=== PATIENT | female | born 1970 | race Caucasian/White ===

== ENCOUNTER 2019-03-03 01:21 | Emergency (ER) | payer OTHER ==
[~2019-03-03] VITALS: Ht 162.6 cm; Wt 82.3 kg
[2019-03-03 01:30] VITALS: BP 169/92; PULSE 70; RESP 20; Ht 162.6 cm; Wt 82.3 kg
[2019-03-03] MEDS ORDERED: LACTATED RINGER'S 1,000 ML IV STA (02:02)
[2019-03-03] MEDS ORDERED: ONDANSETRON 4 MG INJ IV STA (02:02)
--- NOTE | 2019-03-03 02:48 | ERD ---
ER Documentation Chief Complaint Chief Complaint shaky w/N&V & nape pains since Tuesday HPI This is a 48-year-old female with a history of hypertension who presents to the emergency room for evaluation of weakness, nausea, diarrhea, and one episode of "being shaky" for approximately 10 seconds. The patient denies any headache, chest pain, shortness of breath or vomiting currently. She denies any aggravating or relieving factors for her symptoms and came to the ER today for evaluation ROS All systems reviewed and are negative except as per history of present illness. Medications Home Meds Active Scripts Hydrocodone/Acetaminophen ([place] 5-325 Tablet) 1 Each Tablet, 1 TAB PO Q6H PRN for PAIN, #7 TAB Prov:SRIDEVI ÁLVAREZ MD 10/23/16 Ibuprofen* (Motrin*) 600 Mg Tab, 600 MG PO Q6H PRN for PAIN AND OR ELEVATED TEMP, #20 TAB Prov:SRIDEVI ÁLVAREZ MD 10/23/16 Allergies Allergies: Coded Allergies: No Known Allergy (Unverified , 10/22/16) PMhx/Soc History of Surgery: Yes (CARDIAC SX) Anesthesia Reaction: No Hx Neurological Disorder: No Hx Respiratory Disorders: No Hx Cardiac Disorders: Yes (HTN) Hx Psychiatric Problems: No Hx Miscellaneous Medical Probl: Yes (PRE-DIABETES) Hx Alcohol Use: No Hx Substance Use: No Hx Tobacco Use: No Smoking Status: Never smoker Physical Exam Vitals Vital Signs Date Temp Pulse Resp B/P (MAP) Pulse Ox O2 O2 Flow FiO2 Time Delivery Rate 03/03/19 97.8 70 20 169/92 98 01:30 (117) Physical Exam Const: No acute distress Head: Atraumatic Eyes: Normal Conjunctiva ENT: Normal External Ears, Nose and Mouth. Neck: Full range of motion. No meningismus. Resp: Clear to auscultation bilaterally Cardio: Regular rate and rhythm, no murmurs Abd: Soft, non tender, non distended. Normal bowel sounds Skin: No petechiae or rashes Back: No midline or flank tenderness Ext: No cyanosis, or edema Neur: Awake and alert Psych: Normal Mood and Affect Result Diagram: 03/03/19 0206 03/03/19 0206 Results 24 hrs Laboratory Tests Test 03/03/19 02:06 03/03/19 02:15 White Blood Count 7.4 10^3/ul Red Blood Count 4.62 10^6/ul Hemoglobin 13.3 g/dl Hematocrit 38.9 % Mean Corpuscular Volume 84.2 fl Mean Corpuscular Hemoglobin 28.8 pg Mean Corpuscular Hemoglobin Concent 34.2 g/dl Red Cell Distribution Width 13.0 % Platelet Count 198 10^3/UL Mean Platelet Volume 9.9 fl Immature Granulocytes % 0.500 % Neutrophils % 56.4 % Lymphocytes % 29.2 % Monocytes % 10.5 % Eosinophils % 2.6 % Basophils % 0.8 % Nucleated Red Blood Cells % 0.0 /100WBC Immature Granulocytes # 0.040 10^3/ul Neutrophils # 4.2 10^3/ul Lymphocytes # 2.2 10^3/ul Monocytes # 0.8 10^3/ul Eosinophils # 0.2 10^3/ul Basophils # 0.1 10^3/ul Nucleated Red Blood Cells # 0.0 10^3/ul Sodium Level 141 mmol/L Potassium Level 4.2 mmol/L Chloride Level 101 mmol/L Carbon Dioxide Level 32 mmol/L Anion Gap 8 Blood Urea Nitrogen 12 mg/dl Creatinine 0.85 mg/dl Est Glomerular Filtrat Rate mL/min > 60 mL/min Glucose Level 143 mg/dl Calcium Level 10.1 mg/dl Total Bilirubin 0.6 mg/dl Direct Bilirubin 0.00 mg/dl Indirect Bilirubin 0.6 mg/dl Aspartate Amino Transf (AST/SGOT) 74 IU/L Alanine Aminotransferase (ALT/SGPT) 110 IU/L Alkaline Phosphatase 95 IU/L Troponin I < 0.012 ng/ml Total Protein 7.3 g/dl Albumin 4.3 g/dl Globulin 3.00 g/dl Albumin/Globulin Ratio 1.43 Lipase 166 U/L Urine Color STRAW Urine Clarity CLEAR Urine pH 7.0 Urine Specific Occidental 1.003 Urine Ketones NEGATIVE mg/dL Urine Nitrite NEGATIVE mg/dL Urine Bilirubin NEGATIVE mg/dL Urine Urobilinogen NEGATIVE mg/dL Urine Leukocyte Esterase NEGATIVE Matt/ul Urine Microscopic RBC 1 /HPF Urine Microscopic WBC 2 /HPF Urine Squamous Epithelial Cells FEW /HPF Urine Bacteria FEW /HPF Urine Hemoglobin 1+ mg/dL Urine Glucose NEGATIVE mg/dL Urine Total Protein NEGATIVE mg/dl Current Medications Medications Dose Sig/Crystal Start Time Status Last (Trade) Ordered Route PRN Stop Time Admin Dose Reason Admin Lactated 1,000 ml @ Q1H STAT 03/03/19 03/03/19 Ringer's 1,000 mls/hr IV 02:02 02:17 03/03/19 03:01 Ondansetron 4 mg ONCE STAT 03/03/19 DC 03/03/19 HCl (Zofran IV 02:02 02:17 Inj) 03/03/19 02:03 Procedures/MDM EKG: Rate/Rhythm: [Normal Sinus Rhythm] QRS, ST, T-waves: [No changes consistent w/ acute ischemia] Impression: [No evidence of ischemia or arrhythmia] Chest X-ray 1V Interpreted by me: Soft Tissue: No acute abnormalities Bones: No acute abnormalities Mediastinum/Cardiac Silhouette/Lungs: [No acute abnormalities] This 48-year-old female presents to the emergency room for evaluation of multiple complaints including diarrhea, weakness, shakiness. On my exam the patient was afebrile, nontoxic-appearing and hemodynamically stable. The patient did not appear to be in any distress. Her EKG is nonischemic, chest x- ray was clear. Lab work was obtained and the patient was given 1 L of IV fluids. Her lab work does not demonstrate any electrolyte abnormalities, urinalysis is clear. On reevaluation the patient is feeling better. I am unsure if there is a component of anxiety or dehydration to her symptoms however the patient is stable for outpatient follow-up at this time with her primary care physician Departure Diagnosis: Primary Impression: Multiple complaints Additional Impressions: Generalized weakness Diarrhea Condition: FLORIAN Hudson DO Mar 03, 2019 02:48
== END 2019-03-03 03:13 | disposition home or self-care (01) ==
LOC: E/R 01:21 → MERGE 01:21 → E/R 03:13
DX: M54.2 Cervicalgia (principal); I10 Essential (primary) hypertension; R53.1 Weakness; R19.7 Diarrhea, unspecified; R11.0 Nausea; R25.1 Tremor, unspecified; Z98.61 Coronary angioplasty status
CPT/HCPCS: 36415; 71045; 80053; 81001; 83690; 84484; 85025; 93005; 96374; 99285; J2405; J7120

== ENCOUNTER 2019-03-05 09:26 | Emergency (ER) | payer OTHER ==
[~2019-03-05] VITALS: Ht 160 cm; Wt 83.0 kg
[2019-03-05 09:31] VITALS: Ht 160 cm; Wt 83.0 kg
[2019-03-05] MEDS ORDERED: ATOR10TA65 PO (10:05)
[2019-03-05] MEDS ORDERED: METO-335 PO (10:05)
[2019-03-05] MEDS ORDERED: ONDA4TAB8 PO (10:05)
[2019-03-05] MEDS ORDERED: PROCHLORPERAZINE 10 MG INJ IV STA (10:12)
[2019-03-05] MEDS ORDERED: SOD CHLORIDE 0.9% 1,000 ML IV STA (10:12)
[2019-03-05] MEDS ORDERED: DIPHENHYDRAMINE 50 MG INJ IV STA (10:12)
[2019-03-05] MEDS ORDERED: BUTA1CAP38 PO (11:25)
[2019-03-05] MEDS ORDERED: IBUP800T48 PO (11:25)
[2019-03-05 11:32] VITALS: BP 118/71; PULSE 69; RESP 18
--- NOTE | 2019-03-05 11:39 | ERD ---
ER Documentation Chief Complaint Chief Complaint chest pressure x 3 days and headache x 1 week HPI This is a 48-year-old female presents with a multitude of different complaints. The patient was here on the of this month, 2 days ago for similar nonspecific symptoms including chest pain and headache. Patient returns with persistent symptoms. The patient was noted to have elevated blood pressure at that time. The patient used a different name during her visit. Medical record is [id number] Today the patient is describing left-sided gradual onset throbbing headache with associated phono and photophobia. She does have a history of headaches. This feels a little bit more severe than headaches in the past but is not sudden onset and not the worst headache of her life. Patient also describes an "air" sensation from her stomach going up into her chest and into her head. She denies any pressure of the chest no exertional symptoms no shortness of breath, no pleuritic pain. Translation services were utilized during this patient's encounter Language: Israeli Source: Video ROS All systems reviewed and are negative except as per history of present illness. Medications Home Meds Active Scripts Ibuprofen* (Motrin*) 800 Mg Tab, 800 MG PO Q6H PRN for PAIN AND OR ELEVATED TEMP, #30 TAB Prov:DWAYNE BAKER MD 03/05/19 Yzuzgkfuue-Jytvjeqttlbcb-Vdswdizj* (Fioricet*) 50-300-40 Mg Capsule, 1 CAP PO Q4H PRN for HEADACHE, #30 CAP Prov:DWAYNE BAKER MD 03/05/19 Reported Medications Ondansetron Hcl* (Zofran*) 4 Mg Tablet, 4 MG PO Q6H PRN for NAUSEA AND OR VOMITING, TAB 03/05/19 Atorvastatin Calcium (Atorvastatin Calcium) 10 Mg Tablet, 10 MG PO QHS, #30 TAB 03/05/19 Metoprolol Succinate* (Toprol XL*) 25 Mg Tab.sr.24h, 25 MG PO DAILY, #30 TAB 03/05/19 Allergies Allergies: Coded Allergies: No Known Allergy (Unverified , 03/05/19) PMhx/Soc History of Surgery: Yes (, CHOLECYSTECTOMY) Anesthesia Reaction: No Hx Neurological Disorder: No Hx Respiratory Disorders: No Hx Cardiac Disorders: Yes (HTN, HLD) Hx Psychiatric Problems: No Hx Miscellaneous Medical Probl: No Hx Alcohol Use: No Hx Substance Use: No Hx Tobacco Use: No Smoking Status: Never smoker FmHx Family History: No diabetes, No coronary disease Physical Exam Vitals Vital Signs Date Temp Pulse Resp B/P (MAP) Pulse Ox O2 O2 Flow FiO2 Time Delivery Rate 03/05/19 87 18 129/77 100 Room Air 10:59 (94) 03/05/19 98.0 60 18 135/86 100 Room Air 10:09 (102) 03/05/19 97.5 67 18 153/85 98 09:31 (107) Physical Exam General: Well developed, well nourished, no acute distress Head: Normocephalic, atraumatic. Eyes: Pupils equally reactive, EOM intact ENT: Moist mucous membranes Neck: Supple, no lymphadenopathy Respiratory: Lungs clear bilaterally, no distress Cardiovascular: RRR, no murmurs, rubs, or gallops Abdominal: Soft, non-tender, non-distended, no peritoneal signs : Deferred MSK: No edema, no unilateral swelling, 5/5 strength Neurologic: Alert and oriented, moving all extremities, normal speech, no focal weakness, no cerebellar signs, no meningismus Skin: No rash Psych: Normal mood Result Diagram: 03/05/19 1000 03/05/19 1000 Results 24 hrs Laboratory Tests Test 03/05/19 10:00 03/05/19 10:50 White Blood Count 6.3 10^3/ul Red Blood Count 4.36 10^6/ul Hemoglobin 12.3 g/dl Hematocrit 36.9 % Mean Corpuscular Volume 84.6 fl Mean Corpuscular Hemoglobin 28.2 pg Mean Corpuscular Hemoglobin Concent 33.3 g/dl Red Cell Distribution Width 13.2 % Platelet Count 191 10^3/UL Mean Platelet Volume 10.2 fl Immature Granulocytes % 0.300 % Neutrophils % 55.6 % Lymphocytes % 30.6 % Monocytes % 10.5 % Eosinophils % 2.4 % Basophils % 0.6 % Nucleated Red Blood Cells % 0.0 /100WBC Immature Granulocytes # 0.020 10^3/ul Neutrophils # 3.5 10^3/ul Lymphocytes # 1.9 10^3/ul Monocytes # 0.7 10^3/ul Eosinophils # 0.2 10^3/ul Basophils # 0.0 10^3/ul Nucleated Red Blood Cells # 0.0 10^3/ul Prothrombin Time 12.9 Sec Prothrombin Time Ratio 1.0 INR International Normalized Ratio 0.96 Activated Partial Thromboplast Time 28.6 Sec Sodium Level 138 mmol/L Potassium Level 3.8 mmol/L Chloride Level 104 mmol/L Carbon Dioxide Level 28 mmol/L Anion Gap 6 Blood Urea Nitrogen 9 mg/dl Creatinine 0.58 mg/dl Est Glomerular Filtrat Rate mL/min > 60 mL/min Glucose Level 130 mg/dl Calcium Level 9.0 mg/dl Troponin I < 0.012 ng/ml POC Beta HCG, Qualitative NEGATIVE Current Medications Medications Dose Sig/Crystal Start Time Status Last (Trade) Ordered Route PRN Stop Time Admin Dose Reason Admin Sodium 1,000 ml @ Q1H STAT 03/05/19 DC 03/05/19 Chloride 1,000 mls/hr IV 10:12 10:50 03/05/19 11:11 10 mg ONCE STAT 03/05/19 DC 03/05/19 Prochlorperaz IV 10:12 10:50 ine 03/05/19 10:14 (Compazine Inj) 25 mg ONCE STAT 03/05/19 DC 03/05/19 Diphenhydrami IV 10:12 10:51 ne HCl 03/05/19 10:14 (Benadryl) Procedures/MDM EKG, MONITORS, & DIAGNOSTIC IMAGING: CT brain: No acute process per radiologist read Chest x-ray: I reviewed and interpreted a 1 view of the chest Mediastinum: No enlargement Cardiac silhouette: No cardiomegaly Airspace: Clear lung martinez bilaterally without evidence of pneumothorax Bones: No evidence of fracture LAB INTERPRETATION: I reviewed the laboratory testing and it shows no evidence of acute process MEDICAL DECISION MAKING: The patient presents with multiple complaints. The patient's chest discomfort is very nonspecific and described as a "air " sensation. I do not believe the patient's presentation is consistent with acute coronary syndrome. A repeat EKG and troponin will be sent though the patient had a normal EKG and troponin II days ago. Patient also had a chest x-ray at that time. No repeat imaging is necessary. The patient meets the PERC RULE out criteria. Thus, less than 2% risk of pulmonary embolism with better alternative diagnosis. No indication for d-dimer or CT pulmonary angiogram at this time. The patient's headache is unlikely related to serious etiology. The patient does not exhibit any clinical signs or symptoms, and has no risk factors to suggest headache etiology such as subarachnoid hemorrhage, acute vertebral or carotid dissection, intracranial mass, epidural, subdural hematoma, dural venous sinus thrombosis, giant cell arteritis, or pseudotumor cerebri. The headache is unilateral and gradual in onset likely consistent with migraine headache. Given the patient's elevated blood pressure 2 days ago and no central nervous system imaging in our records a CT of the brain to rule out mass would be appropriate. ER COURSE: * Patient given IV fluids, Compazine and Benadryl with dramatic improvement of her headache. Laboratory testing and diagnostic imaging is otherwise unrevealing. * At this point I feel the patient can be safely discharged with close primary care follow-up. CONSULTATION: None DISPOSITION PLAN: The patient does not have an identifiable emergent medical condition that warrants inpatient hospitalization at this time. The patient is deemed safe for discharge with outpatient follow-up. We discussed follow up with the patient's primary care doctor within 24 to 48 hours as needed. We also discussed return to the emergency room for worsening symptoms or worsening condition. Outpatient referral: None required Discharge Medications: Fioricet Departure Diagnosis: Primary Impression: Migraine headache Migraine type: unspecified Status migrainosus presence: without status migrainosus Intractability: not intractable Qualified Codes: G43.909 - Migraine, unspecified, not intractable, without status migrainosus Condition: Stable Patient Instructions: Headache, Unspecified Ref[facility]: [facility] Usted se shrestha hecho un examen mdico de control que le indica que no est en freida condicin que requiera tratamiento urgente en el Departamento de Emergencia. Un estudio ms profundo y el tratamiento de delvalle condicin pueden esperar sin ningn riesgo hasta que usted sea atendida/o en el consultorio de delvalle mdico o freida clnica. Es responsabilidad suya arreglar freida sirena para el seguimiento del olivia. MANEJO DE CONDICIONES NO URGENTES EN EL FUTURO 1) Si usted tiene un mdico de atencin primaria: Usted debera llamar a delvalle mdico de atencin primaria antes de venir al departamento de emergencia. Despus de las horas de consultorio, delvalle doctor o delvalle asociado/a est disponible por telfono. El mdico o enfermero de sheldon en el servicio telefnico puede asesorarle por hina medio para atender el problema, o olivia contrario se puede programar freida sirena. 2) Si usted no tiene un mdico de atencin primaria: Llame al mdico o clnica de referencia que aparece abajo shantal las horas de c onsultorio para hacer freida sirena para que le vean. CLINICAS: [facility] [phone] [facility] [phone] [facility] [[email or web address] [phone] [address] [facility]. [place] [id number] [phone] [facility]. [place] [id number] [phone] [facility]. [phone] [address] [facility]. [facility] () Usted se shrestha hecho un examen mdico de control que le indica que no est en freida condicin que requiera tratamiento urgente en el Departamento de Emergencia. Un estudio ms profundo y el tratamiento de delvalle condicin pueden esperar sin ningn riesgo hasta que usted sea atendida/o en el consultorio de delvalle mdico o freida clnica. Es responsabilidad suya arreglar freida sirena para el seguimiento del olivia. MANEJO DE CONDICIONES NO URGENTES EN EL FUTURO 1) Si usted tiene un mdico de atencin primaria: Usted debera llamar a delvalle mdico de atencin primaria antes de venir al departamento de emergencia. Despus de las horas de consultorio, delvalle doctor o delvalle asociado/a est disponible por telfono. El mdico o enfermero de sheldon en el servicio telefnico puede asesorarle por hina medio para atender el problema, o olivia contrario se puede programar freida sirena. 2) Si usted no tiene un mdico de atencin primaria: Llame al mdico o condado institucions de referencia que aparece abajo shantal las horas de consultorio para hacer freida sirena para que le vean. SI USTED NO PUEDE PAGAR PARA ISAMAR UN MEDICO puede ir a: [facility] [address] [place] [address] [facility] [address] [place] [address] [facility] [address] [place] [address] [facility] [facility] [address] [place], [place] [id number] Additional Instructions: Llame al doctor nombrado abajo (Referral Sources) MAANA y iesha freida SIRENA PARA D ENTRO DE FREIDA SEMANA. Dgale a la secretaria que nosotros le instruimos hacer esta sirena.Avise o llame si delvalle condicin se empeora antes de la sirena. DWAYNE BAKER MD Mar 05, 2019 11:39
== END 2019-03-05 11:48 | disposition home or self-care (01) ==
LOC: E/R 09:26
DX: G43.909 Migraine, unspecified, not intractable, without status migrainosus (principal); I10 Essential (primary) hypertension; R40.2142 Coma scale, eyes open, spontaneous, at arrival to emergency department; R40.2252 Coma scale, best verbal response, oriented, at arrival to emergency department; R40.2362 Coma scale, best motor response, obeys commands, at arrival to emergency department; R93.0 Abnormal findings on diagnostic imaging of skull and head, not elsewhere classified
CPT/HCPCS: 36415; 70450; 80048; 81025; 84484; 85025; 85610; 85730; 93005; 96374; 96375; 99285; J0780; J1200; J7030